=== PATIENT | female | born 1950 | race Caucasian/White ===

== ENCOUNTER 2022-02-07 08:16 | Inpatient (IN) | payer MEDICARE, OTHER ==
[2022-02-07] MEDS: Sodium Chloride 0.9% 10 ML Syringe FLUSH PRN ×2 (09:01→11:00)
[2022-02-07 09:31] LABS: ESTIMATED GFR 44 mL/min (>60)
[2022-02-07] MEDS ORDERED: HYDROmorphone 0.5 MG/0.5 ML Syringe IVPUSH ONE (10:52)
[2022-02-07] MEDS ORDERED: HYDROmorphone 0.5 MG/0.5 ML Syringe IVPUSH PRN (16:00)
[2022-02-07] MEDS ORDERED: Ondansetron 4 MG/2 ML SDV IV PRN (16:00)
[2022-02-07] MEDS ORDERED: Heparin Sodium 5,000 Units/ML Vial SUBCUT SCH (16:00)
[2022-02-07] MEDS ORDERED: Sodium Chloride 0.9% 10 ML Syringe FLUSH PRN (16:00)
[2022-02-07] MEDS ORDERED: Acetaminophen 325 MG Tab PO PRN (16:00)
[2022-02-07] MEDS: Lactated Ringers 1,000 ML IV SCH (16:18)
[2022-02-07] MEDS: Insulin Regular, Human 100 Units/ML 3 ML Vial SUBCUT SCH (19:51)
[2022-02-08] MEDS: Lactated Ringers 1,000 ML IV SCH ×2 (00:29→08:27)
[2022-02-08] MEDS: Heparin Sodium 5,000 Units/ML Vial SUBCUT SCH ×3 (04:52→18:26)
[2022-02-08] MEDS: Insulin Regular, Human 100 Units/ML 3 ML Vial SUBCUT SCH ×3 (08:26→18:05)
[2022-02-08] MEDS: glipiZIDE 5 MG Tab.ER PO SCH ×2 (08:31→08:43)
[2022-02-08] MEDS: metFORMIN 500 MG Tab PO SCH ×2 (08:32→08:42)
[2022-02-08] MEDS ORDERED: Losartan 50 MG Tab PO SCH ×2 (09:00)
[2022-02-08] MEDS ORDERED: atorvaSTATin 20 MG Tab PO SCH (21:00)
[2022-02-08] MEDS ORDERED: Lactated Ringers 1,000 ML IV SCH (22:00)
[2022-02-09] MEDS: Heparin Sodium 5,000 Units/ML Vial SUBCUT SCH (03:06)
[2022-02-09] MEDS ORDERED: Bupivacaine 0.25% 10 ML SDV ONE (08:18)
[2022-02-09] MEDS ORDERED: Lidocaine 1% with EPINEPHrine 1:100,000 20 ML MDV ONE ×2 (08:18→08:22)
[2022-02-09] MEDS ORDERED: Bupivacaine 0.5% 30 ML SDV ONE (08:22)
[2022-02-09] MEDS ORDERED: Acetaminophen/HYDROcodone 325-5 MG Tab PO PRN (08:22)
[2022-02-09] MEDS ORDERED: Ondansetron 4 MG/2 ML SDV ONE (08:23)
[2022-02-09] MEDS ORDERED: Propofol 200 MG/20 ML SDV ONE (08:23)
[2022-02-09] MEDS ORDERED: Rocuronium 50 MG/5 ML Vial ONE (08:23)
[2022-02-09] MEDS ORDERED: fentaNYL 250 MCG/5 ML SDV ONE (08:24)
[2022-02-09] MEDS ORDERED: Lidocaine 1% 5 ML VIAL ONE (08:24)
[2022-02-09] MEDS ORDERED: Midazolam 1 MG/ML 2 ML SDV ONE (08:24)
[2022-02-09] MEDS ORDERED: Sodium Chloride 0.9% 50 ML SDV ONE (08:49)
[2022-02-09] MEDS ORDERED: Iopamidol 612 MG/ML 50 ML SDV ONE (08:49)
[2022-02-09] MEDS ORDERED: ceFAZolin 2 GM Vial ONE (09:27)
[2022-02-09] MEDS ORDERED: Lactated Ringers 1,000 ML ONE ×2 (09:35→10:37)
[2022-02-09] MEDS ORDERED: Ketamine 500 mg/10 ML MDV ONE (09:40)
[2022-02-09] MEDS ORDERED: fentaNYL 100 MCG/2 ML SDV IVPUSH PRN (09:48)
[2022-02-09] MEDS ORDERED: Ondansetron 4 MG/2 ML SDV IVPUSH PRN (09:48)
[2022-02-09] MEDS ORDERED: HYDROmorphone 0.5 MG/0.5 ML Syringe IVPUSH PRN (09:48)
[2022-02-09] MEDS ORDERED: Labetalol 100 MG/20 ML MDV ONE (09:53)
[2022-02-09] MEDS ORDERED: Neostigmine Methylsulfate 10 MG/10 ML MDV ONE (10:06)
[2022-02-09] MEDS ORDERED: HYDROmorphone 0.5 MG/0.5 ML Syringe ONE (10:13)
[2022-02-09] MEDS ORDERED: Dexamethasone 4 MG/ML 5 ML MDV ONE (10:25)
[2022-02-09] MEDS: Insulin Regular, Human 100 Units/ML 3 ML Vial SUBCUT SCH ×2 (10:59→14:35)
== END 2022-02-09 16:19 | disposition home or self-care (01) | DRG 419 ==
LOC: JD.ED 08:16 → JD.ICU 15:00
PROVIDERS: ADMIT Surgery; ATTEND Surgery
PROC: 0FT44ZZ Resection of Gallbladder, Percutaneous Endoscopic Approach (ICD-10-PCS; principal; 2022-02-07)
DX: K85.10 Biliary acute pancreatitis without necrosis or infection (principal); K81.9 Cholecystitis, unspecified; K80.70 Calculus of gallbladder and bile duct without cholecystitis without obstruction; E78.00 Pure hypercholesterolemia, unspecified; E78.5 Hyperlipidemia, unspecified; I10 Essential (primary) hypertension; E11.9 Type 2 diabetes mellitus without complications; Z79.84 Long term (current) use of oral hypoglycemic drugs; Z79.899 Other long term (current) drug therapy; Z87.891 Personal history of nicotine dependence; Z88.8 Allergy status to other drugs, medicaments and biological substances
CPT/HCPCS: 36415; 71045; 76705; 80053; 83690; 84484; 85025; 86140; 93005; 96374; 99285; J1170; J3490 ×2; 00790; 74300; 74300-26; 80061; 82150; 82947; 83735; A9270-GY; J0690; J1100; J1644; J1815-GY; J2250; J2405; J2704; J2710; J3010; J7120; Q9967

== ENCOUNTER 2024-03-24 08:45 | Day surgery (SDC) | payer MEDICARE, OTHER ==
[~2024-03-24 08:45] MED LIST: Morphine 8 MG, EPINEPHrine 0.3 MG, Cefuroxime 750 MG, Ketorolac 30 MG, Sodium Chloride ... PRN; Sodium Chloride 0.9% 10 ML Syringe FLUSH PRN; Sodium Chloride 0.9% 10 ML Syringe FLUSH SCH
[2024-03-24] MEDS ORDERED: Phenylephrine 1% 10 MG/ML SDV ONE (09:26)
[2024-03-24] MEDS ORDERED: Propofol 200 MG/20 ML SDV ONE ×6 (09:26→11:06)
[2024-03-24] MEDS ORDERED: ceFAZolin 2 GM Vial ONE (09:26)
[2024-03-24] MEDS ORDERED: Ondansetron 4 MG/2 ML SDV ONE (09:26)
[2024-03-24] MEDS ORDERED: Acetaminophen/HYDROcodone 325-5 MG Tab PO PRN (09:30)
[2024-03-24] MEDS: Lactated Ringers 1,000 ML IV SCH (09:30)
[2024-03-24] MEDS ORDERED: ePHEDrine 50 MG/ML SDV ONE (10:51)
[2024-03-24] MEDS ORDERED: Lactated Ringers 1,000 ML ONE (11:00)
[2024-03-24] MEDS ORDERED: fentaNYL 100 MCG/2 ML SDV ONE (11:11)
[2024-03-24] MEDS ORDERED: fentaNYL 100 MCG/2 ML SDV IVPUSH PRN (11:44)
[2024-03-24] MEDS: Morphine 8 MG, EPINEPHrine 0.3 MG, Cefuroxime 750 MG, Ketorolac 30 MG, Sodium Chloride ... PRN (11:44)
[2024-03-24] MEDS: Tranexamic Acid 1,000 MG/10 ML Vial ONE (11:45)
[2024-03-24] MEDS: Vancomycin 1 GM SDV ONE (11:45)
[2024-03-24] MEDS ORDERED: Esmolol 100 MG/10 ML SDV ONE (11:51)
== END 2024-03-24 16:15 | disposition home or self-care (01) ==
LOC: JD.SDS 08:45
PROVIDERS: ATTEND Orthopaedic Surgery
DX: M16.11 Unilateral primary osteoarthritis, right hip (principal); E78.00 Pure hypercholesterolemia, unspecified; E11.22 Type 2 diabetes mellitus with diabetic chronic kidney disease; I12.9 Hypertensive chronic kidney disease with stage 1 through stage 4 chronic kidney disease, or unspecified chronic kidney disease; N18.31 Chronic kidney disease, stage 3a; Z79.4 Long term (current) use of insulin; Z79.899 Other long term (current) drug therapy; Z79.82 Long term (current) use of aspirin; Z87.891 Personal history of nicotine dependence; Z88.8 Allergy status to other drugs, medicaments and biological substances
CPT/HCPCS: 0055T; 27130; 36415; 73501; 82947; 86850; 86900; 86901; 97116; 97161; C1713; C1776; J0171; J0690; J0697; J1885; J2270; J2371; J2405; J2704; J3010; J3370; J3490; J7120; 01214; 99100; J2272

== ENCOUNTER 2024-10-10 07:15 | Day surgery (SDC) | payer MEDICARE, OTHER ==
[2024-10-10] MEDS ORDERED: Lactated Ringers 1,000 ML IV ONE (07:16)
[2024-10-10] MEDS ORDERED: propofoL 1,000 MG/100 ML 100 ML ONE (07:54)
[2024-10-10] MEDS ORDERED: Midazolam 1 MG/ML 2 ML SDV ONE (08:08)
[2024-10-10] MEDS ORDERED: ceFAZolin 2 GM Vial ONE (08:28)
[2024-10-10] MEDS: Morphine 8 MG, EPINEPHrine 0.3 MG, Cefuroxime 750 MG, Ketorolac 30 MG, Sodium Chloride ... PRN (09:16)
[2024-10-10] MEDS: Tranexamic Acid 1,000 MG/10 ML Vial ONE (09:16)
[2024-10-10] MEDS: VANCOmycin 1 GM SDV ONE (09:16)
[2024-10-10] MEDS ORDERED: Ropivacaine 0.5% 5 MG/ML 30 ML SDV ONE (09:25)
[2024-10-10] MEDS: Acetaminophen/HYDROcodone 325-5 MG Tab PO ONE (11:38)
== END 2024-10-10 15:10 | disposition home or self-care (01) ==
LOC: JD.SDS 07:15
PROVIDERS: ATTEND Orthopaedic Surgery
DX: M17.12 Unilateral primary osteoarthritis, left knee (principal); I10 Essential (primary) hypertension; E78.5 Hyperlipidemia, unspecified; E11.9 Type 2 diabetes mellitus without complications; Z79.4 Long term (current) use of insulin; Z88.8 Allergy status to other drugs, medicaments and biological substances; Z79.899 Other long term (current) drug therapy; Z87.891 Personal history of nicotine dependence
CPT/HCPCS: 0055T; 27447; 73560; 97116; 97161; A9270; C1713; C1776; J0171; J0690; J0697; J1885; J2250; J2272; J2704; J2795; J7120; J3490